=== PATIENT | female | born 1995 | race Caucasian/White ===

== ENCOUNTER 2017-05-13 13:52 | Emergency (ER) | payer OTHER ==
[~2017-05-13] VITALS: Ht 157.5 cm; Wt 118.2 kg
[~2017-05-13 13:52] MED LIST: AMOX-462 PO; HYDR-3965 PO; IBUP100T53 PO
[2017-05-13 15:33] VITALS: BP 139/52
[2017-05-13] MEDS ORDERED: KETOROLAC TROMETHAMINE 60 MG/2 ML VIAL IM ONE (15:45)
[2017-05-13] MEDS ORDERED: ONDANSETRON HCL 4 MG TABLET PO ONE (16:15)
== END 2017-05-13 16:39 | disposition home or self-care (01) ==
LOC: EMS 13:53
DX: R51 Headache (principal); R11.0 Nausea
CPT/HCPCS: 96372; 99283; J1885; Q0162

== ENCOUNTER 2017-06-26 12:20 | Emergency (ER) | payer OTHER ==
[~2017-06-26] VITALS: Ht 157.5 cm; Wt 118.2 kg
[~2017-06-26 12:20] MED LIST changes: -AMOX-462 PO; -HYDR-3965 PO
[2017-06-26 14:00] LABS: RAPID GROUP A STREP POSITIVE (NEGATIVE)
[2017-06-26 14:07] LABS: INFLUENZA TYPE A NEGATIVE FOR TYPE A (NEGATIVE); INFLUENZA TYPE B NEGATIVE FOR TYPE B (NEGATIVE)
[2017-06-26] MEDS ORDERED: PENICILLIN G BENZATHINE LA 1,200,000 UNITS/2 ML SYRINGE IM ONE (14:30)
[2017-06-26 14:35] VITALS: BP 119/76
[2017-06-26] MEDS ORDERED: IBUPROFEN 800 MG TABLET PO ONE (15:15)
== END 2017-06-26 15:27 | disposition home or self-care (01) ==
LOC: EMS 12:22
DX: J02.0 Streptococcal pharyngitis (principal); M79.1 Myalgia
CPT/HCPCS: 87430; 87804; 96372; 99284; J0561

== ENCOUNTER 2017-08-15 11:33 | Emergency (ER) | payer OTHER ==
[~2017-08-15] VITALS: Ht 157.5 cm; Wt 113.6 kg
[2017-08-15 13:24] VITALS: BP 144/75
== END 2017-08-15 13:56 | disposition home or self-care (01) ==
LOC: EMS 11:34
DX: S83.91XA Sprain of unspecified site of right knee, initial encounter (principal); W01.0XXA Fall on same level from slipping, tripping and stumbling without subsequent striking against object, initial encounter; Y93.01 Activity, walking, marching and hiking; Y92.89 Other specified places as the place of occurrence of the external cause; Y99.8 Other external cause status
CPT/HCPCS: 99283

== ENCOUNTER 2017-09-12 00:17 | Emergency (ER) | payer OTHER ==
[~2017-09-12] VITALS: Ht 157.5 cm; Wt 118.2 kg
[2017-09-12 00:23] VITALS: BP 157/91
== END 2017-09-12 01:47 | disposition left against medical advice (07) ==
LOC: EMS 00:18
DX: R30.0 Dysuria (principal); Z53.21 Procedure and treatment not carried out due to patient leaving prior to being seen by health care provider

== ENCOUNTER 2018-09-01 19:39 | Emergency (ER) | payer OTHER ==
[~2018-09-01] VITALS: Ht 157.5 cm; Wt 122.7 kg
[2018-09-01 19:44] VITALS: BP 139/96
[2018-09-01] MEDS ORDERED: AMOXICILLIN TRIHYDRATE 250 MG CAPSULE PO ONE (22:30)
[2018-09-01] MEDS ORDERED: ACETAMINOPHEN 500 MG TABLET PO ONE (22:30)
== END 2018-09-01 23:12 | disposition home or self-care (01) ==
LOC: EMS 19:39
DX: J02.9 Acute pharyngitis, unspecified (principal); H92.09 Otalgia, unspecified ear

== ENCOUNTER 2018-10-25 09:09 | Emergency (ER) | payer OTHER ==
[~2018-10-25] VITALS: Ht 162.6 cm; Wt 118.2 kg
[2018-10-25 09:57] LABS: APPEARANCE,URINE CLEAR (CLEAR); BILIRUBIN,URINE NEGATIVE (NEGATIVE); GLUCOSE, URINE (UA) NEGATIVE (NEGATIVE); KETONES,URINE NEGATIVE (NEGATIVE); LEUKOCYTE ESTERASE ,URINE SMALL (NEGATIVE); NITRATE,URINE NEGATIVE (NEGATIVE); OCCULT BLOOD,URINE NEGATIVE (NEGATIVE); PROTEIN,URINE NEGATIVE (NEGATIVE); UROBILINOGEN,URINE 0.2 mg/dL (<=1.0)
[2018-10-25 10:08] LABS: BACTERIA,URINE None Seen /HPF (None Seen); SQUAMOUS EPITHELIAL CELL,UR Many /LPF (None Seen); WBC,URINE None Seen /HPF (0-5)
[2018-10-25 11:10] VITALS: BP 132/98
== END 2018-10-25 11:18 | disposition home or self-care (01) ==
LOC: EMS 09:09
DX: R30.0 Dysuria (principal); R30.9 Painful micturition, unspecified; R10.30 Lower abdominal pain, unspecified

== ENCOUNTER 2020-08-28 13:30 | Emergency (ER) | payer OTHER ==
[~2020-08-28] VITALS: Ht 165.1 cm; Wt 100.0 kg
[2020-08-28] MEDS ORDERED: ACYCLOVIR 200 MG CAPSULE PO ONE (14:15)
[2020-08-28 14:30] VITALS: BP 142/74
== END 2020-08-28 14:43 | disposition home or self-care (01) ==
LOC: EMS 13:30
DX: B00.9 Herpesviral infection, unspecified (principal)
CPT/HCPCS: 87255; 99283

== ENCOUNTER 2020-12-27 14:07 | Emergency (ER) | payer OTHER ==
[~2020-12-27] VITALS: Ht 172.7 cm; Wt 127.3 kg
[2020-12-27 14:42] LABS: COVID AG,FIA SOURCE NASAL SWAB
[2020-12-27 15:32] LABS: INFLUENZA TYPE A NEGATIVE FOR TYPE A (NEGATIVE); INFLUENZA TYPE B NEGATIVE FOR TYPE B (NEGATIVE)
[2020-12-27 15:42] VITALS: BP 128/94
== END 2020-12-27 15:47 | disposition home or self-care (01) ==
LOC: EMS 14:10
DX: J06.9 Acute upper respiratory infection, unspecified (principal); H92.02 Otalgia, left ear; F17.210 Nicotine dependence, cigarettes, uncomplicated; F12.90 Cannabis use, unspecified, uncomplicated; Z20.822 Contact with and (suspected) exposure to COVID-19
CPT/HCPCS: 87804; 99283

== ENCOUNTER 2021-02-16 13:12 | Emergency (ER) | payer OTHER ==
[~2021-02-16] VITALS: Ht 157.5 cm; Wt 122.7 kg
[2021-02-16 17:00] VITALS: BP 124/79
== END 2021-02-16 17:31 | disposition home or self-care (01) ==
LOC: EMS 13:39
DX: S61.305A Unspecified open wound of left ring finger with damage to nail, initial encounter (principal); X50.0XXA Overexertion from strenuous movement or load, initial encounter; Y93.89 Activity, other specified; Y92.89 Other specified places as the place of occurrence of the external cause; Y99.8 Other external cause status
CPT/HCPCS: 99281; Z7502

== ENCOUNTER 2021-11-28 20:52 | Emergency (ER) | payer OTHER ==
[~2021-11-28] VITALS: Ht 175.3 cm; Wt 118.2 kg
[2021-11-28 23:00] VITALS: BP 149/84
== END 2021-11-28 23:09 | disposition home or self-care (01) ==
LOC: EMS 21:23
DX: M25.571 Pain in right ankle and joints of right foot (principal); F12.90 Cannabis use, unspecified, uncomplicated; F17.210 Nicotine dependence, cigarettes, uncomplicated
CPT/HCPCS: 99283

== ENCOUNTER 2022-01-16 15:55 | Emergency (ER) | payer OTHER ==
[~2022-01-16] VITALS: Ht 157.5 cm; Wt 127.3 kg
[2022-01-16] MEDS ORDERED: IBUPROFEN 600 MG TABLET PO ONE (18:30)
[2022-01-16] MEDS ORDERED: LIDOCAINE 5% TRANSDERMAL PATCH TD ONE (18:30)
[2022-01-16] MEDS ORDERED: BACL10TA PO (19:23)
[2022-01-16] MEDS ORDERED: IBUP-2070 PO (19:26)
[2022-01-16 19:40] VITALS: BP 132/88
== END 2022-01-16 19:46 | disposition home or self-care (01) ==
LOC: EMS 15:57
DX: M54.2 Cervicalgia (principal); M54.6 Pain in thoracic spine; F12.90 Cannabis use, unspecified, uncomplicated; Z87.448 Personal history of other diseases of urinary system; Z86.19 Personal history of other infectious and parasitic diseases; Z98.890 Other specified postprocedural states; V89.2XXA Person injured in unspecified motor-vehicle accident, traffic, initial encounter; Y93.89 Activity, other specified; Y92.89 Other specified places as the place of occurrence of the external cause; Y99.8 Other external cause status
CPT/HCPCS: 72040; 72070; 99284; Z7502; Z7610

== ENCOUNTER 2023-01-28 14:25 | Emergency (ER) | payer OTHER ==
[~2023-01-28] VITALS: Ht 162.6 cm; Wt 127.3 kg
[~2023-01-28 14:25] MED LIST changes: +BACL10TA PO; +IBUP-1492 PO; -IBUP100T53 PO
[2023-01-28 14:28] VITALS: BP 140/100; PULSE 84; RESP 16; TEMP 98.3
[2023-01-28] MEDS ORDERED: IBUP-1554 PO (16:03)
== END 2023-01-28 16:30 | disposition home or self-care (01) ==
LOC: EMS 14:29
DX: S60.052A Contusion of left little finger without damage to nail, initial encounter (principal); F12.90 Cannabis use, unspecified, uncomplicated; Z98.890 Other specified postprocedural states; W45.8XXA Other foreign body or object entering through skin, initial encounter; Y93.89 Activity, other specified; Y92.89 Other specified places as the place of occurrence of the external cause; Y99.8 Other external cause status
CPT/HCPCS: 99283

== ENCOUNTER 2023-04-03 09:51 | Emergency (ER) | payer OTHER ==
[~2023-04-03] VITALS: Ht 157.5 cm; Wt 127.3 kg
[~2023-04-03 09:51] MED LIST changes: -BACL10TA PO; -IBUP-1492 PO; +IBUP-1554 PO
[2023-04-03 09:55] VITALS: TEMP 98.5
[2023-04-03 10:48] LABS: BASOPHILS % (AUTO) 0.4 % (0.0-2.0); EOSINOPHILS % (AUTO) 1.1 % (1.0-6.0); HEMATOCRIT 35.3 % (36-46); HEMOGLOBIN 11.8 g/dL (12.0-16.0); LYMPHOCYTES % (AUTO) 19.6 % (22.0-44.0); MEAN CORPUSCULAR HEMOGLOBIN 27.4 pg (26.0-34.0); MEAN CORPUSCULAR HGB CONC 33.2 G/dL (31.0-37.0); MEAN CORPUSCULAR VOLUME 83 fL (80-100); MONOCYTES # (AUTO) 0.7 K/uL (0.1-1.0); NEUTROPHILS # (AUTO) 7.3 K/uL (1.8-7.7); NEUTROPHILS % (AUTO) 71.9 % (40.0-70.0); PLATELET COUNT (AUTO) 285 K/uL (150-450); RED BLOOD CELL COUNT(AUTO) 4.28 MIL/uL (4.00-5.20); RED CELL DISTRIBUTION WIDTH 16.1 % (11.5-14.5); WHITE BLOOD COUNT (AUTO) 10.1 K/uL (4.5-11.0)
[2023-04-03 11:52] LABS: APPEARANCE,URINE CLEAR (CLEAR); BILIRUBIN,URINE NEGATIVE (NEGATIVE); COLOR,URINE COLORLESS (YELLOW); GLUCOSE, URINE (UA) NEGATIVE (NEGATIVE); LEUKOCYTE ESTERASE ,URINE NEGATIVE (NEGATIVE); NITRATE,URINE NEGATIVE (NEGATIVE); OCCULT BLOOD,URINE TRACE (NEGATIVE); PROTEIN,URINE NEGATIVE (NEGATIVE); SPECIFIC GRAVITIY, URINE 1.004 (1.003-1.030); UROBILINOGEN,URINE <=1.0 mg/dL (<=1.0)
[2023-04-03 12:34] LABS: BACTERIA,URINE None Seen /HPF (None Seen); RBC,URINE 0-2 /HPF (0-2); SQUAMOUS EPITHELIAL CELL,UR Few /LPF (None Seen); WBC,URINE None Seen /HPF (0-5)
[2023-04-03 12:35] VITALS: BP 144/88; PULSE 94; RESP 18
== END 2023-04-03 12:50 | disposition home or self-care (01) ==
LOC: EMS 10:12
DX: O20.0 Threatened abortion (principal); F12.90 Cannabis use, unspecified, uncomplicated; Z3A.13 13 weeks gestation of pregnancy; Z98.890 Other specified postprocedural states
CPT/HCPCS: 76801; 76817; 81001; 84702; 85025; 86901; 99284

== ENCOUNTER 2024-12-24 23:52 | Emergency (ER) | payer MEDICAID, OTHER ==
[~2024-12-24] VITALS: Ht 162.6 cm; Wt 100.0 kg
[2024-12-25 00:08] VITALS: TEMP 98.1
[2024-12-25] MEDS: OxyCODONE HCL 5 MG IR TABLET PO ONE (01:50)
[2024-12-25] MEDS: KETOROLAC TROMETHAMINE 30 MG/ML VIAL IM ONE (01:50)
[2024-12-25] MEDS ORDERED: MORP15TA70 PO (02:05)
[2024-12-25 02:15] VITALS: BP 126/88; PULSE 72; RESP 18; O2SAT 99
[2024-12-25] MEDS ORDERED: HYDR-4072 PO (23:00)
== END 2024-12-25 02:31 | disposition home or self-care (01) ==
LOC: EMS 23:53
DX: K02.9 Dental caries, unspecified (principal); K08.89 Other specified disorders of teeth and supporting structures; F12.90 Cannabis use, unspecified, uncomplicated
CPT/HCPCS: 99283; 96372; J1885

== ENCOUNTER 2025-01-27 19:45 | Emergency (ER) | payer MEDICAID, OTHER ==
[~2025-01-27] VITALS: Ht 162.6 cm; Wt 147.7 kg
[~2025-01-27 19:45] MED LIST changes: +HYDR-4072 PO; -IBUP-1554 PO
[2025-01-27 19:50] VITALS: BP 120/78; PULSE 94; RESP 17; TEMP 98.8; O2SAT 100
== END 2025-01-27 22:56 | disposition home or self-care (01) ==
LOC: EMS 19:45
DX: D17.23 Benign lipomatous neoplasm of skin and subcutaneous tissue of right leg (principal); R22.41 Localized swelling, mass and lump, right lower limb; F12.90 Cannabis use, unspecified, uncomplicated; Z79.899 Other long term (current) drug therapy
CPT/HCPCS: 99282; Z7502